=== PATIENT | female | born 1980 | race African-American/Black ===

== ENCOUNTER 2023-02-25 13:15 | Outpatient (OUT) | payer OTHER, SELFPAY ==
--- NOTE | 2023-02-25 13:23 | MM_ITS ---
Patient: HARDY MARTINEZ Exam Date: 02/25/2023 : 1980 Gender:F Ordering : DR Greyson Alfaro . Admission #: [id number] Family : Non-Staff Physician Order #: [id number] CLICK HERE TO VIEW EXAM RADIOLOGY REPORT PROCEDURE: MM TOMOSYNTHESIS SCREENING BI COMPARISON: MG MAMM SCREEN KRISTOFER W CAD, 07/24/2019. INDICATIONS: Screening Calculator Name NCI Breast Cancer Risk Assessment Tool 5 Year Breast Cancer Risk 0.90% Lifetime Breast Cancer Risk 9.30% Personal Breast Cancer No Personal Ovarian Cancer No Treatments None Family Cancers None LOCATION: [facility] BREAST COMPOSITION: Scattered areas fibroglandular density. FINDINGS: DIAGNOSTIC CATEGORY 2--BENIGN FINDING: RIGHT BREAST: No significant suspicious finding. Stable small benign appearing lymph node within upper-outer quadrant. Scattered benign-appearing calcifications are present. No significant change has occurred. LEFT BREAST: No significant suspicious finding. Scattered benign-appearing calcifications are present. No significant change has occurred. RECOMMENDATIONS: ROUTINE MAMMOGRAM AND CLINICAL EVALUATION IN 12 MONTHS. PLEASE NOTE: A NORMAL MAMMOGRAM DOES NOT EXCLUDE THE POSSIBILITY OF BREAST CANCER. A CLINICALLY SUSPICIOUS PALPABLE LUMP SHOULD BE BIOPSIED. Dictated by: Keshav Avalos M.D. on 03/02/2023 at 14:55 Approved by: Keshav Avalos M.D. on 03/02/2023 at 14:57
--- NOTE | 2023-02-25 13:34 | US_ITS ---
[address] [address] Patient Name: HARDY MARTINEZ MRN: [id number] date: 1980 Sex: F Assigned Patient Location: MAMMO Current Patient Location: M[facility]MO Accession/Order Number: [id number] Exam Date: 02/25/2023 14:05 Report Date: 02/25/2023 15:23 At the request of: LYNDSEY FREEMAN Procedure: US pelvis w/ transvaginal EXAMINATION: US pelvis w/ transvaginal HISTORY: Menorrhagia with regular cycle N92.0 COMPARISON: Ultrasound pelvis 06/10/2021 TECHNIQUE: Transabdominal and/or transvaginal sonographic examination was performed as indicated by examination type. FINDINGS: UTERUS: Heterogeneous myometrial mass within posterior fundus, 3.4 x 3.3 x 2.3 cm, suspected represent a leiomyoma. Small nabothian cysts within cervix and chronic dystrophic calcification. Uterus size: 11.0 x 6.3 x 6.0 cm ENDOMETRIUM: Normal homogeneous appearance. Endometrial thickness: 4 mm RIGHT OVARY: Normal size and appearance. Duplex Doppler demonstrates normal waveform and flow; resistive index 3.4. Ovary size: 2.0 x 2.1 x 1.3 cm LEFT OVARY: Contains a 3.0 cm benign-appearing cyst. Duplex Doppler demonstrates normal waveform and flow; resistive index 0.6. Ovary size: 4.1 x 3.4 x 2.7 cm CUL-DE-SAC: Unremarkable. No significant free fluid. BLADDER: Unremarkable. OTHER: None. IMPRESSION: 1. Slight interval increase in size of a fundal myometrial mass, suspected represent a leiomyoma. This does not appear to contact the endometrium. 2. Incidental nabothian cysts. 3. Benign-appearing left ovarian cyst of doubtful clinical significance. Electronically authenticated by: ADRIANNA SHUKLA Date: 02/25/2023 15:23
== END 2023-02-25 13:16 ==
LOC: MAMMO 13:16
PROVIDERS: Visit Provider Obstetrics & Gynecology
DX: Z12.31 Encounter for screening mammogram for malignant neoplasm of breast (principal); N92.0 Excessive and frequent menstruation with regular cycle; N83.202 Unspecified ovarian cyst, left side
CPT/HCPCS: 76830; 76856; 77063; 77067

== ENCOUNTER 2025-04-23 19:06 | Outpatient (REF) | payer OTHER, SELFPAY ==
[2025-04-26 15:08] LABS: Age Gdln ACOG Testing Note (.); IGP, Aptima HPV, rfx 16/18,45 Note (.)
== END 2025-04-23 19:07 | disposition home or self-care (01) ==
LOC: LAB 19:06
PROVIDERS: Visit Provider Obstetrics & Gynecology
DX: Z01.419 Encounter for gynecological examination (general) (routine) without abnormal findings (principal)
CPT/HCPCS: 87624; 88175

== ENCOUNTER 2025-07-16 11:06 | Outpatient (OUT) | payer OTHER, SELFPAY ==
--- OUTSIDE RECORDS SUMMARY | 2025-07-16 11:09 | XMS_ITS | Clinical Summary ---
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 Name Role Phone Unavailable Primary Care Provider Unavailabl e Allergies Active AllergyReactionsCriticalityNoted SfluLfugmvcwSlalhifgsoOtvqs10/22/2017 Povidone DklxhlUgdhhex13/30/2023Povidone-AszwxcLjwska28/02/2019 PT blistered from application Medications MedicationSigDispense QuantityRefillsLast FilledStart DateEnd DateStatus losartan (Cozaar) 25 MG tablet Losartan PotassiumActive Active Problems ProblemNoted DateDiagnosed DateAbnormal uterine bleeding (AUB)02/15/2023 Cvbxaeaobogh01/30/2023Menstrual llvithcw49/30/2023Menorrhagia with regular cycle 02/15/2023 Encounters DateTypeDepartmentCare CjefLbjaoiqjyxq23/13/2025 8:40 AM EDTConsult [facility] [address] [place] [address] [place] [address] Greyson Alfaro DO Pre-op evaluation; Uterine leiomyoma, unspecified location; Enlarged uterus; Pelvic pain in fscdmg6207/01/2025amboo flowsheet [facility] [address] [place] [address] [place] [address] Greyson Alfaro DO 05/21/2025 8:30 [place] [address] Greyson Alfaro DO Encounter to discuss test results; Enlarged uterus; Uterine leiomyoma, unspecified /02/2025amboo flowsheet [facility] [address] [place] [address] Greyson Alfaro DO 05/07/2025 1:00 PM EDTAncillary [place] [address] Abnormal uterine bleeding (AUB)05/07/2025[place] [address] Gris Price MA 04/23/2025 1:00 PM [place] [address] Greyson Alfaro DO Well woman exam with routine gynecological exam; Breast cancer screening by mammogram; Abnormal uterine bleeding (AUB)04/23/2025linisync Result Encounter [facility] Department Unsolicited Greyson Alfaro DO 04/23/2025[place] [id number] Elva Dickens LPN 5Bamboo [place] [address] Greyson Alfaro DO from Last 3 Months Social History Tobacco UseTypesPacks/DayYears UsedDateSmoking Tobacco: Never Assessed Tobacco Cessation:Counseling Given: Not Answered CommentsNoSex and Gender InformationValueDate RecordedSex Assigned at BirthNot on fileLegal KhiYfqbsv41/15/2023 11:48 PM EDTGender IdentityNot on file Sexual OrientationNot on file Last Filed Vital Signs Vital SignReadingTime TakenCommentsBlood Qazikgqz013/7207/01/2025 8:58 AM EDT Pulse--Temperature--Respiratory Rate--Oxygen Saturation--Inhaled Oxygen Concentration--Kacnmh65.9 kg (154 lb)07/01/2025 8:58 AM WIVYctufp099.5 cm (5' 2 )07/01/2025 8:58 AM EDTBody Mass Index28.171 8:58 AM EDT Plan of Treatment DateTypeDepartmentCare Team (Latest Contact Info)Deltwegguif60/10/2026 1:00 PM EDTProcedure Visit [facility] [address] [place] [id number] DominicGreyson benites, DO [address] [place], [place] [id number] Procedures Procedure NamePriorityDate/TimeAssociated DiagnosisCommentsUS PELVIC COMPLETE W/ IHIguffna23/19/2025 1:44 PM EDT Abnormal uterine bleeding (AUB) IGP,APTIMA HPV,AGE PKUXGxuwsgz26/05/2025 12:59 PM EDT PAP DWKGNQlbiujk83/05/2025 12:00 AM EDTfrom Last 3 Months Results * US Pelvis w/ TV (05/07/2025 1:44 PM EDT)Anatomical RegionLateralityModality PelvisUltrasoundSpecimen (Source)Anatomical Location / LateralityCollection Method / VolumeCollection TimeReceived Time05/09/2025 8:06 AM EDT Narrative 05/09/2025 8:06 AM EDT EXAM: US PELVIC COMPLETE W/ TV HISTORY: ??AUB, irregular heavy periods, months between periods. COMPARISON: ??None available. TECHNIQUE: Two-dimensional transabdominal grayscale ultrasound imaging of the pelvis was performed.Color flow Doppler imaging of the ovaries was also performed. Transvaginal was performed. FINDINGS: UTERUS 12.1 x 7.2 x 8.7 cm The uterus is anteverted in position and demonstrates a heterogeneous echotexture. ??There is a 5.6cm subserosal fibroid within the fundus. ??Multiple nabothian cysts are visualized within the cervix. ENDOMETRIUM 0.8 cm The endometrium demonstrates a normal, homogeneous echotexture. RIGHT OVARY 3.3 x 1.8 x 2.9 cm The right ovary demonstrates a normal echotexture. ??There is normal color Doppler flow. ??There sonido 2.4 cm follicle. LEFT OVARY 4.2 x 2.7 x 2.8 cm The left ovary demonstrates a normal echotexture. ??There is normal color Doppler flow. ??There is a 2.5 cm dominant follicle. No fluid is present within the cul-de-sac. IMPRESSION: 1. Enlarged and heterogeneous uterus with a fibroid. 2. Normal color Doppler flow within the bilateral ovaries. Interpreted by: Electronically signed by CK LOVE II, ?? , PHD at 09-May-2025 08:05:18 AM [facility] Procedure Note Ck Love MD - 05/09/2025 EXAM: US PELVIC COMPLETE W/ TV HISTORY: AUB, irregular heavy periods, months between periods. COMPARISON: None available. TECHNIQUE: Two-dimensional transabdominal grayscale ultrasound imaging ofthe pelvis was performed. Color flow Doppler imaging of the ovaries wasalso performed. Transvaginal was performed. FINDINGS: UTERUS 12.1 x 7.2 x 8.7 cm The uterus is anteverted in position and demonstrates a heterogeneous echotexture. There is a 5.6 cm subserosal fibroid within the fundus.Multiple nabothian cysts are visualized within the cervix. ENDOMETRIUM 0.8 cm The endometrium demonstrates a normal, homogeneous echotexture. RIGHT OVARY 3.3 x 1.8 x 2.9 cm The right ovary demonstrates a normal echotexture. There is normal colorDoppler flow. There is a 2.4 cm follicle. LEFT OVARY 4.2 x 2.7 x 2.8 cm The left ovary demonstrates a normal echotexture. There is normal colorDoppler flow. There is a 2.5 cm dominant follicle. No fluid is present within the cul-de-sac. IMPRESSION: 1. Enlarged and heterogeneous uterus with a fibroid. 2. Normal color Doppler flow within the bilateral ovaries. Interpreted by: Electronically signed by CK LOVE II, MD, PHD [id number] 08:05:18 AM [facility] Authorizing ProviderResult TypeResult StatusCorey Dominic [facility] US PROCEDURESFinal Result * IGP,APTIMA HPV,AGE GDLN (04/23/2025 12:59 PM EDT)ComponentValueRef RangeTest MethodAnalysis TimePerformed AtPathologist SignatureAGE GDLN ACOG TESTINGNote. TBHComment: ?? TESTS ? RESULT ??FLAG ??UNITS ?REF RANGE ??LAB ?? Clinician Provided Cytology Information ?? Source.............Cervix;Endocervix ?? No. of containers..01 ThinPrep Vial Age Algo ACOG Kathi... ??30-65 ? 01 ?FLAG LEGEND: ?L-Low Normal,H-High Normal,LL-Alert Low,HH-Alert High <-Panic Low,>-Panic High,A-Abnormal,AA-Critical Abnormal Performed at: 01 =G ?[facility] ?? [address] [place], [place] ??[address] ?? Leti Piper MD, IGP, APTIMA HPV, RFX 16/18,45Note.TBHComment: ?? TESTS ? RESULT ??FLAG ??UNITS ?REF RANGE ??LAB DIAGNOSIS: ?02 ?? NEGATIVE FOR INTRAEPITHELIAL LESION OR MALIGNANCY. Specimen adequacy: ?02 ?? Satisfactory for evaluation. ??Endocervical and/or squamous metaplastic ?? cells (endocervical component) are present. Performed by: ? 02 ?? Danylel Noel, Sand Screener (ASCP) . ? 02 Note: ? Note ?02 ?? The Pap smear is a screening test designed to aid in the ?? detection of premalignant and malignant conditions of the ?? uterine cervix. ??It is not a diagnostic procedure and ?? should not be used as the sole means of detecting cervical ?? cancer. ??Both false-positive and false-negative reports do ?? occur. Test Methodology: ? Note ?02 ?? This liquid based ThinPrep(R) pap test was screened with ?? the use of an image guided system. HPV Genotype Reflex ?? Note ?02 ?? Criteria not met, HPV Genotype not performed. ?FLAG LEGEND: ?L-Low Normal,H-High Normal,LL-Alert Low,HH-Alert High <-Panic Low,>-Panic High,A-Abnormal,AA-Critical Abnormal Performed at: 02 WB ?[facility] ?? [address] [place], [place] ??[address] ?? Leti Piper MD, HPV APTIMANegativeNegativeTBHComment: This nucleic acid amplification test detects fourteen high- risk HPV types (16,18,31,33,35,39,45,51,52,56,58,59,66,68) without differentiation. Performed at: ??=G - [facility] ??[id number] Inside Sales Engineer: Leti Piper MD, Phone: ??[phone] Performed at: ??WB - [facility] ??[id number] Inside Sales Engineer: Leti Piper MD, Phone: ??[phone] Specimen (Source)Anatomical Location / LateralityCollection Method / Volume Collection TimeReceived Time04/23/2025 12:59 PM EDT04/23/2025 9:00 PM EDT Narrative [facility] - 04/26/2025 3:08 PM EDT BRUSH-SPATULA CERVIX ENDOCERVIX Authorizing ProviderResult TypeResult StatusCorey Dominic [facility] BLOOD ORDERABLES Final ResultPerforming OrganizationAddressCity/State/[facility] CodePhone Number [facility] * Pap Smear (04/23/2025 12:00 AM EDT)Specimen (Source)Anatomical Location / LateralityCollection Method / VolumeCollection TimeReceived TimeSwabCervical swab / Unknown Narrative Authorizing ProviderResult TypeResult StatusCorey Dominic [facility] CYTOLOGY ORDERABLESFinal ResultPerforming OrganizationAddressCity/State/ZIP CodePhone Number EXTERNAL LAB from Last 3 Months Insurance
--- NOTE | 2025-07-16 11:10 | ECG_ITS ---
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
[2025-07-16 12:49] LABS: Anion Gap 7.8; Blood Urea Nitrogen 13.0 mg/dL (7.0-18.0); Calcium 9.0 mg/dL (8.5-10.1); Carbon Dioxide 34.4 mmol/L (21.0-32.0); Chloride 100 mmol/L (98-107); Estimated GFR (African America >60 (>=60 mL/min/1.73m^2); Estimated GFR (Non-African Ame >60 (>=60 mL/min/1.73m^2); Glucose 89 mg/dL (74-106); Potassium 3.2 mmol/L (3.5-5.1); Sodium 139 mmol/L (136-145)
== END 2025-07-16 11:07 | disposition home or self-care (01) ==
LOC: PST 11:07
PROVIDERS: Visit Provider Obstetrics & Gynecology
DX: Z01.812 Encounter for preprocedural laboratory examination (principal); Z01.810 Encounter for preprocedural cardiovascular examination; N85.2 Hypertrophy of uterus; D25.9 Leiomyoma of uterus, unspecified
CPT/HCPCS: 36415; 80048; 93005

== ENCOUNTER 2025-07-26 07:55 | Day surgery (SDC) | payer OTHER, SELFPAY ==
[2025-07-16 11:37] VITALS: BP 161/97; PULSE 59; TEMP 36.3; O2SAT 99; BMI 28.5
--- OUTSIDE RECORDS SUMMARY | 2025-07-17 22:59 | XMS_ITS | Continuity of Care Document ---
Author Organization [facility] Address [address] [place] [address] [place] [address] Support Name Relationship Address Phone Iman Fields Personal Relationship Unknown Unava ilable Encounter FT_AMBFIN [id number] Date(s): 07/17/25 - 07/17/25 [facility] [address], [address], [place] [address]- Discharge Disposition: Home (Routine DC) Attending Physician: Bharat HAAS MD Encounter Type: Clinic Allergies, Adverse Reactions, Alerts SubstanceCriticalitySeverityReactionReaction SeverityStatusiodineRashActive Treatment Plan Future Appointments Appointment Date:07/31/2025 03:20:00 PM Scheduled Provider:Bharat HAAS MD Location:[facility] Appointment Type:[facility] 15 Medications hydrochlorothiazide 12.5 mg Tab 90 EA, 0 Refill(s), TAKE 1 TABLET BY MOUTH ONCE DAILY, Refills(s) 0 Start Date: 07/10/25 Status: Ordered Medication Dispense Status: Completed Total Allowed Fills: 1 Fills Dispensed: 0 losartan 25 mg Tab 25 mg = 1 tab(s), Oral, Daily, Refills(s) 0 Start Date: 05/27/25 Status: Ordered Medication Dispense Status: Completed Total Allowed Fills: 1 Fills Dispensed: 0 Metoprolol tartrate 50 mg Tab 90 EA, 0 Refill(s), TAKE 1 TABLET BY MOUTH IN THE MORNING, Refills(s) 0 Start Date: 07/10/25 Status: Ordered Medication Dispense Status: Completed Total Allowed Fills: 1 Fills Dispensed: 0 Vyvanse 40 mg oral capsule 30 EA, 0 Refill(s), TAKE 1 CAPSULE BY MOUTH IN THE MORNING MAX DAILY AMOUNT 40MG, Refills(s) 0 Start Date: 07/10/25 Status: Ordered Medication Dispense Status: Completed Total Allowed Fills: 1 Fills Dispensed: 0 Problem List ConditionConfirmationCourseEffective DatesStatusHealth StatusInformantADHD ConfirmedActiveHypertensionConfirmedActiveOverweightConfirmedActive Procedures ProcedureDateRelated DiagnosisBody SiteStatusCesarean sectionCompletedCesarean sectionCompletedDilation and curettageCompletedTubal ligationCompleted Social History Social History TypeResponseBirth SexFemaleSex RepresentationFemale (finding) Patient Care team information Care Team Related Persons Name: Iman Fields Insurance Providers Guarantor name: [employer] Plan Information #: 1 Payer: [facility] Payer Identifier: [id number] Member Number: [id number] Group Number: [id number] Subscriber Identifier: [id number] Relationship to Subscriber: self Coverage Type: MEDICAID Coverage Verification Date: 25 Telecom: [id number] Address: [address]
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
[2025-07-26] VITALS (11 sets, daily range): BP systolic 82–131; BP diastolic 50–78; PULSE 56–69; TEMP 36.2–36.4; O2SAT 91–100; BMI 30.6
--- OUTSIDE RECORDS SUMMARY | 2025-07-26 07:59 | XMS_ITS | Clinical Summary ---
Author Organization Reocar tem Address [id number] [address] [place] [address] Care Team Providers Care Wholesale Account Executive Name Role Phone Carmenza Murphy MD Primary Care Provider [phone] Allergies Active AllergyReactionsCriticalityNoted DateCommentsPovidone-IodineMedium 03/20/2019 PT blistered from application LogxoixyzhMdbzg92/22/2017 Medications MedicationSigDispense QuantityRefillsLast FilledStart DateEnd DateStatus hydroCHLOROthiazide (HYDRODIURIL) 12.5 mg tablet Indications:HTN (hypertension), benign,Essential hypertensionTake 1 tablet (12.5 mg total) by mouth daily. 90 tablet 5Active metoprolol tartrate (LOPRESSOR) 50 mg tablet Indications:HTN (hypertension), benign,Essential hypertensionTake 1 tablet (50 mg total) by mouth in the morning. 90 tablet 5Active lisdexamfetamine (VYVANSE) 40 mg capsule Indications:Attention deficit hyperactivity disorder (ADHD), unspecified ADHD type,Attention deficit disorder (ADD) without hyperactivityTake 1 capsule (40 mg total) by mouth in the morning. Max Daily Amount: 40 mg. 90 capsule 5Active lisdexamfetamine (VYVANSE) 40 mg capsule Indications:Attention deficit hyperactivity disorder (ADHD), unspecified ADHD type,Attention deficit disorder (ADD) without hyperactivityTake 1 capsule (40 mg total) by mouth in the morning. Max Daily Amount: 40 mg. 90 capsule Discontinued(Reorder) predniSONE (DELTASONE) 10 mg tablet Indications:Sore throat (viral)Take 2 tablets by mouth daily for 4 days then 1 tablet daily 10 tablet Discontinued fluticasone propionate (FLONASE) 50 mcg/actuation nasal spray Indications:Sore throat (viral)Administer 1 spray into each nostril in the morning. 15.8 mL Discontinued benzocaine-menthoL (CEPACOL SORE THROAT, MALIA-MEN,) 15-2.6 mg lozenge Indications:Sore throat (viral)Dissolve 1 lozenge in the mouth every 2 (two) hours as needed (sore throat). 18 lozenge Discontinued Active Problems ProblemNoted DateDiagnosed DateMenorrhagia with regular cycle02/15/2023ttention deficit hyperactivity disorder (ADHD)04/08/2017Attention deficit disorder (ADD) without oevifpbsgtkrj22/22/2017HTN (hypertension), mhbqch7103/10/2017 Encounters DateTypeDepartmentCare TokiJtuokstryio74/04/2025 2:20 PM ESTOffice Visit [facility] [address] [place] [phone] Bharat Castanon DO HTN (hypertension), benign (Primary Dx)07/23/20252519Axljer72/21/2025 2:40 PM EDT Office Visit [facility] [address] [place] [address] [place] [address] 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, 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 Sore throat (viral) (Primary Dx)07/09/20258004Dbcepl63/12/2025Refill [facility] [address] [place] [address] [place] [address] Carmenza Murphy MD Attention deficit hyperactivity disorder (ADHD), unspecified ADHD type; Attention deficit disorder (ADD) without hdenghddizngq89/02/2025Telephone [facility] [address] [place] [address] [place] [address] Remedios Joe CMA Colon Cancer Nnfdyshlj83/07/2025[facility] [address] [place] [phone] Carmenza Murphy MD HTN (hypertension), benign; Essential hypertension; Attention deficit hyperactivity disorder (ADHD), unspecified ADHD type; Attention deficit disorder (ADD) without xfdsspqgaweac50/07/2025Results Follow-Up [facility] [address] [place] [phone] Carmenza Murphy MD Drug Screen, Urine05/23/2025 4:00 PM EDTOffice Visit [facility] [address] [place] [phone] Carmenza Murphy MD HTN (hypertension), benign; Essential hypertension; Attention deficit hyperactivity disorder (ADHD), unspecified ADHD type; Attention deficit disorder (ADD) without ccyqtwubvsouj13/04/2025Travelfrom Last 3 Months Immunizations ImmunizationAdministration DatesNext EitVfrg3810/26/2017 Family History Medical HistoryRelationNameCommentsDiabetesMotherElzaHypertensionMotherElza HypertensionSisterArrieRelationNameStatusCommentsMotherElzaAliveSisterArrieAlive Social History Tobacco UseTypesPacks/DayYears UsedDateSmoking Tobacco: NeverSmokeless Tobacco: Never Tobacco Cessation:Counseling Given: Not Answered Alcohol UseStandard Drinks/WeekCommentsNot Currently0 (1 standard drink = 0.6 oz pure alcohol)Social Connection and Isolation PanelAnswerDate RecordedIn a typical week, how many times do you talk on the phone with family, friends, or neighbors?More than three times a week03/16/2022How often do you get together with friends or relatives?Twice a week03/16/2022How often do you attend buddhist or shinto services?More than 4 times per year2Do you belong to any clubs or organizations such as buddhist groups, unions, fraternal or athletic fredi ups, or school groups?No03/16/2022How often do you attend meetings of the clubs or organizations you belong to?Never03/16/2022re you , , , , never , or living with a partner?Never 03/16/2022verall Financial Resource Strain (CARDIA)AnswerDate RecordedHow hard is it for you to pay for the very basics like food, housing, medical care, and heating?Not hard at all02/20/2025PHQ-2AnswerDate RecordedTotal Hzxzs71809/22/2024 [facility]ational [facility] - Occupational Stress Questionnaire [...] from medical appointments or from getting medications?Patient xkungbgj79/04/2025In the past 12 months, has lack of transportation kept you from meetings, work, or from getting things needed for daily living?Patient gzntfbqy72/04/2025UDIT-CAnswerDate RecordedQ1: How often do you have a [...] a household?Patient Declined 02/20/2025hildcareAnswerDate RecordedDo problems getting child neurologist make it difficult for you to work [...] InformationValueDate RecordedSex Assigned at BirthNot on fileLegal IzwKlnomu45/06/2015 11:32 AM EDTGender IdentityNot on fileSexual OrientationNot on file Last Filed Vital Signs Vital SignReadingTime TakenCommentsBlood Amrpxifa224/8407/23/2025 3:03 PM EST Jmleh535707/23/2025 2:23 PM YJOUnfzglckmjl24.7 ??C (98 ??F)07/23/2025 2:23 PM EST Respiratory Oxaq3927 8:56 AM EDTOxygen Equvsdhmas12%07/23/2025 2:23 PM ESTInhaled Oxygen Concentration--Ozakro60.3 kg (161 lb 9.6 oz)07/23/2025 2:23 PM LWUCcfxyr540.5 cm (5' 2 )07/23/2025 2:23 PM ESTBody Mass Index29.56109/22/2024 2:23 PM EST Plan of Treatment DateTypeDepartmentCare Team (Latest Contact Info)Gsireooqdoo22/09/2025 3:30 PM ESTOffice Visit [facility] [address] [place] [address] [place] [address] Carmenza Murphy MD [address] [place] [address], [place] [address] Health MaintenanceDue DateLast DoneCommentsAdult BMI Follow Up Plan01/20/1996 Ozonvmwvx00/03/2018Adult BMI Xujhwstyi87Depression Screening Tobacco Khcqephut20/04/54832509/22/2024DTaP,Tdap and Td Vaccines (7 - Td or Tdap), 06/07/1984, 09/27/1983, Additional history existsPap SmearInfluenza Vaccine Discontinued Medical Devices Not on file Procedures Procedure NamePriorityDate/TimeAssociated DiagnosisCommentsDRUG SCREEN, URINE Jnwyvdw3805/23/2025 4:49 PM EDT Attention deficit hyperactivity disorder (ADHD), unspecified ADHD type Attention deficit disorder (ADD) without hyperactivity from Last 3 Months Results * (ABNORMAL) Drug Screen, Urine (05/23/2025 4:49 PM EDT)ComponentValueRef Range Test MethodAnalysis TimePerformed AtPathologist SignatureAMPHETAMINE/METHAMP HdsmjqwjIpmfgpik27/04/2025 7:09 PM [facility] Comment:AMPH/METH screening cut off = 1000 ng/mLCOCAINE METABOLITENegative Axehordp95/04/2025 7:09 PM [facility]: Cocaine screening cut off value = 300 ng/rHWHUMZOAKagnyrgfDxcvomag75/04/2025 7:09 PM [facility]:Ecstasy screening cut off value = 500 ng/cNRVOKARLLAFdnclueuCcphyndv21/04/2025 7:09 PM [facility]:Methadone screening cut off value = 300 ng/mL.LJKYYUIZcododrnIyktzkbl07/04/2025 7:09 PM [facility]: Opiates screening cut off value = 300 ng/mL This test is used for the detection of codeine, hydrocodone (>1000 ng/mL), morphine and hydromorphone (>900 ng/mL) in urine. CUVIDBTOJLhbfltgoJprlrxcj48/04/2025 7:09 PM [facility]: Oxycodone screening cut off value = 300 ng/mL This test is used for the detection of oxycodone and oxymorphone in urine. TJRTFLKUDNMTFFfllkwqaKpzdyucr85/04/2025 7:09 PM [facility]:Phencyclidine screening cut off value = 25 ng/mLCANNABINOIDS Positive(A)Vjwggpst61/04/2025 7:09 PM [facility] Comment:Cannabinoids/THC screening cut off value = 50 ng/mLUrine Barbiturates QmpogtotIddpdhmr52/04/2025 7:09 PM [facility] Comment:Barbiturates screening cut off value = 200 ng/mLBENZODIAZEPINESNegative Pbmoelet42/04/2025 7:09 PM [facility] Benzodiazepines screening cut off value = 200 ng/mLSpecimen (Source)Anatomical Location / LateralityCollection Method / VolumeCollection TimeReceived TimeUrine 05/23/2025 4:49 PM EDT05/23/2025 4:49 PM EDT Narrative [facility] - 05/23/2025 7:09 PM EDT Confirmation available upon request. Authorizing ProviderResult TypeResult StatusMuargelia DONALD ORDERABLES Final ResultPerforming OrganizationAddressCity/State/ZIP CodePhone Number [facility] [address] [place] [address], [place] [phone] from Last 3 Months Care Teams Team MemberRelationshipSpecialtyStart DateEnd Date Carmenza Murphy MD [address] [place] [address] PCP - GeneralInternal Medicine10/07/23
--- OUTSIDE RECORDS SUMMARY | 2025-07-26 07:59 | XMS_ITS | Encounter Summary ---
Author Organization [facility] Address [address] [place] [address] Care Team Providers Care Laborer Bituminous Paving Name Role Phone Unavailable Primary Care Provider Unavailabl e Encounter Details DateTypeDepartmentCare Team (Latest Contact Info)Izyiouupmvl52/28/2025linisync Result Encounter [facility] Unsolicited Lyndsey Alfaro, [address] [place] [address] Social History Tobacco UseTypesPacks/DayYears UsedDateSmoking Tobacco: Never Assessed CommentsNoSex and Gender InformationValueDate RecordedSex Assigned at BirthNot on fileLegal GmfWxdnnt99/15/2023 11:48 PM EDTGender IdentityNot on fileSexual OrientationNot on filedocumented as of this encounter Plan of Treatment DateTypeD[facility] medical centerCare Team (Latest Contact Info)Oqjphhbixcb24/10/2026 1:00 PM EDTProcedure Visit [facility] [place] [facility] [address] [address] Lyndsey Alfaro DO [address] [place] [address] documented as of this encounter Procedures Procedure NamePriorityDate/TimeAssociated DiagnosisCommentsECG 12-LEAD07/16/2025 9:40 AM EDT documented in this encounter Results * ECG 12-LEAD (07/16/2025 9:40 AM EDT)Anatomical RegionLateralityModalityOther Specimen (Source)Anatomical Location / LateralityCollection Method / Volume Collection TimeReceived Time07/16/2025 9:40 AM EDT Narrative 07/16/2025 1:15 PM EDT [facility] ?[address] ? [place] [address] ? Electrocardiograph Report ? Signed ? Patient: LIU,HARDY M ?MR#: [id number] ?? : 1980 ?Acct:[id number] ?? Age/Sex: 45 / F ?ADM Date: 10/28/25 ?? Loc: PST ? Attending Dr: Lyndsey Alfaro D.O. ? Ordering Physician: Lyndsey Alfaro D.O. ?? Date of Service: 07/16/25 ?? Procedure(s): ECG 12 lead ?? Accession Number(s): [id number] ? cc: ?[facility] ? Test Date: ?2025-07-16 ?? Pat Name: ? HARDY LIU ?Department: ? Room: ? - ?? Gender: ? Female ? Jewelsmith: ? : ?1980 ? Requested By: LYNDSEY ALFARO ?? Order Number: [id number] ?Reading MD: ?? EMILE CASTLE ? Measurements ?? Intervals ?[place] ? Rate: ? 54 ? P: ?46 ?? SD: ? 137 ?QRS: ?33 ?? QRSD: ? 80 ? T: ?24 ?? QT: ? 377 ? QTc: ?360 ? Interpretive Statements ?? SINUS BRADYCARDIA ?? SEPTAL MYOCARDIAL INFARCTION [40+ ms Q WAVE IN V1/V2], OF INDETERMINATE AGE ?? Compared to ECG 07/16/2025 09:33:30 ?? T-wave abnormality no longer present ?? Possible ischemia no longer present ?? Myocardial infarct finding still present ?? Electronically Signed On 07-16-2025 13:14:31 EDT by EMILE CASTLE ? Dictated By: ?Emile Castle M.D. ? Signed By: ?07/16/25 1315 ? DD/ 0940 ? TD/TT: ? Learning Center Instructor: Procedure Note Radiology, Radiologist, - 07/16/2025 [place] [address] Electrocardiograph Report Signed Patient: HARDY LIU MMR#: [id number] : 1980Acct:[id number] Age/Sex: 45 / FADM Date: 07/16/25 Loc: PST Attending Dr: Lyndsey Alfaro D.O. Ordering Physician: Lyndsey Alfaro D.O. 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 Signed By:07/16/25 1315 DD/ 0940 TD/TT: Learning Center Instructor: Authorizing ProviderResult TypeResult StatusCorey Dominic DOCLINISYNC IMAGINGFinal Result documented in this encounter Visit Diagnoses Not on filedocumented in this encounter
--- OUTSIDE RECORDS SUMMARY | 2025-07-26 07:59 | XMS_ITS | Encounter Summary ---
Author Organization [facility] Address [address] [facility] [place] [address] Care Team Providers Care Field Underwriter Name Role Phone Unavailable Primary Care Provider Unavailabl e Encounter Details DateTypeDepartmentCare Team (Latest Contact Info)Cjijogzprsk68/28/2025linisync Result Encounter [facility] External [facility] Unsolicited Greyson Alfaro, [address] [place] [address] Social History Tobacco UseTypesPacks/DayYears UsedDateSmoking Tobacco: Never Assessed CommentsNoSex and Gender InformationValueDate RecordedSex Assigned at BirthNot on fileLegal ZeyVrfvlr44/15/2023 11:48 PM EDTGender IdentityNot on fileSexual OrientationNot on filedocumented as of this encounter Plan of Treatment DateTypeDewashington regional medical centerCare Team (Latest Contact Info)Ayxunsnqugq70/10/2026 1:00 PM EDTProcedure Visit [facility] [place] [facility] [address] [place] [address] Greyson Alfaro DO [address] [place] [address] documented as of this encounter Procedures Procedure NamePriorityDate/TimeAssociated DiagnosisCommentsALL BASIC METABOLIC OOESRWitcqkw17/28/2025 11:49 AM EDT documented in this encounter Results * (ABNORMAL) ALL BASIC METABOLIC PANEL (07/16/2025 11:49 AM EDT)ComponentValue Ref RangeTest MethodAnalysis TimePerformed AtPathologist VzpytsddkNUHYSH651479 - 145 mmol/LTBHPOTASSIUM3.2(L)3.5 - 5.1 mmol/LBJPTZMCFJJD72425 - 107 mmol/LTBH CARBON PENYZVC55.4(H)21.0 - 32.0 mmol/LTBHANION GAP7.1MQEFGULFCS8544 - 106 mg/dLTBHBLOOD UREA FCXXQJAM33.07.0 - 18.0 mg/dLTBHCREATININE0.870.55 - 1.02 mg/dLTBHTBH EGFR-AF MOZAMBICAN>60>=60 mL/min/1.73m 2TBHTBH EGFR-NON AF MOZAMBICAN >60>=60 mL/min/1.73m 2TBHBUN CREATININE RATIO14.8YUQPWASYBR4.08.5 - 10.1 mg/dL TBHSpecimen (Source)Anatomical Location / LateralityCollection Method / Volume Collection TimeReceived Time07/16/2025 11:49 AM EDT1 11:52 AM EDT Narrative [facility] - 07/16/2025 12:56 PM EDT Authorizing ProviderResult TypeResult StatusCorey Dominic DOCLINISYNCFinal Result Performing OrganizationAddressCity/State/ZIP CodePhone Number [facility] TB documented in this encounter Visit Diagnoses Not on filedocumented in this encounter
--- OUTSIDE RECORDS SUMMARY | 2025-07-26 07:59 | XMS_ITS | Encounter Summary ---
Author Organization [employer] s tem Address [id number] [address] [place] [address] Care Team Providers Care Principal Programmer Name Role Phone Carmenza Murphy MD Primary Care Provider [phone] Encounter Details DateTypeDepartmentCare Team (Latest Contact Info)Yibmregsdzm48/04/2025Travel Social History Tobacco UseTypesPacks/DayYears UsedDateSmoking Tobacco: NeverSmokeless Tobacco: NeverAlcohol UseStandard Drinks/WeekCommentsNot Currently0 (1 standard drink = 0.6 oz pure alcohol)Social Connection and Isolation PanelAnswerDate RecordedIn a typical week, how many times do you talk on the phone with family, friends, or neighbors?More than three times a week03/16/2022How often do you get together with friends or relatives?Twice a week03/16/2022How often do you attend yazidism or rastafarian services?More than 4 times per year2Do you belong to any clubs or organizations such as yazidism groups, unions, fraternal or athletic fredi ups, or school groups?No03/16/2022How often do you attend meetings of the clubs or organizations you belong to?Never03/16/2022re you , , , , never , or living with a partner?Never 2Overall Financial Resource Strain (CARDIA)AnswerDate RecordedHow hard is it for you to pay for the very basics like food, housing, medical care, and heating?Not hard at all02/20/2025PHQ-2AnswerDate RecordedTotal Rgrja26509/22/2024 [employer] [place] [facility] [employer] - Occupational Stress Questionnaire [...] from medical appointments or from getting medications?Patient /04/2025In the past 12 months, has lack of transportation kept you from meetings, work, or from getting things needed for daily living?Patient kuliolib86/04/2025UDIT-CAnswerDate RecordedQ1: How often do you have a [...] household?Patient Declined 02/20/2025hildcareAnswerDate RecordedDo problems getting child and youth program assistant make it difficult for you to work [...] InformationValueDate RecordedSex Assigned at BirthNot on fileLegal YdaOdnvdb78/06/2015 11:32 AM EDTGender IdentityNot on fileSexual OrientationNot on filedocumented as of this encounter Functional Status * AUDIT-C ScoreAnswerDate of NsdxrscvxzAjodcg565/04/2025 2:23 PM Joselin Vasquez CNA * QuestionAnswerDate [...] Vasquez CNA documented as of this encounter Plan of Treatment DateTypeDepartmentCare Team (Latest Contact Info)Vqsxybqcmlb29/09/2025 3:30 PM ESTOffice Visit [facility] [address] [place] [phone] Carmenza Murphy MD [address] [place] [address] documented as of this encounter Visit Diagnoses Not on filedocumented in this encounter Additional Health Concerns AssessmentNoted TimePHQ-9 Depression Total Score: 2:23 PM ESTA Body Mass Index follow-up plan has been documented for the lwtohzz1011/03/2020 11:39 AM ESTdocumented as of this encounter Care Teams Team MemberRelationshipSpecialtyStart DateEnd Date Carmenza Murphy MD [address] [place] [address] PCP - GeneralInternal Medicine1/19/24documented as of this encounter
--- OUTSIDE RECORDS SUMMARY | 2025-07-26 07:59 | XMS_ITS | Clinical Summary ---
Author Organization [facility] Address [address] [facility] [place] [address] Care Team Providers Care Still Operator Whiskey Name Role Phone Unavailable Primary Care Provider Unavailabl e Allergies Active AllergyReactionsCriticalityNoted ZiioZtftjpusVhhpyqbdziQjlvk48/22/2017 Povidone QdzowtTcyrzju75/30/2023Povidone-RxjwgyVthcbr68/02/2019 PT blistered from application Medications MedicationSigDispense QuantityRefillsLast FilledStart DateEnd DateStatus losartan (Cozaar) 25 MG tablet Losartan PotassiumActive Active Problems ProblemNoted DateDiagnosed DateAbnormal uterine bleeding (AUB)02/15/2023 Wgkzieupklev09/30/2023Menstrual zoywducf08/30/2023Menorrhagia with regular cycle 02/15/2023 Encounters DateTypeDepartmentCare GpfsVrcnmzchfzu34/30/2025Telephone [facility] [address] [place] [address] Gris Price MA 5Clinisync Result Encounter [facility] External Department Unsolicited Lyndsey Alfaro DO 5Clinisync Result Encounter [facility]S External Department Unsolicited Lyndsey Alfaro DO 07/01/2025 8:40 AM EDTConsult [facility] [address] [place] [address] Lyndsey Alfaro DO Pre-op evaluation; Uterine leiomyoma, unspecified location; Enlarged uterus; Pelvic pain in miuoax5207/01/2025amboo flowsheet [facility] [address] [place] [address] Lyndsey Alfaro DO 05/21/2025 8:30 AM EDTOffice Visit [facility] [address] [place] [address] [place] [address] Lyndsey Alfaro DO Encounter to discuss test results; Enlarged uterus; Uterine leiomyoma, unspecified pmjyzfli79/02/2025amboo flowsheet [facility] [address] [facility] [address] Lyndsey Alfaro DO 05/07/2025 1:00 PM EDTAncillary Procedure [facility] [address] [place] [address] [place] [address] Abnormal uterine bleeding (AUB)05/07/2025Orders Only [facility] [address] [place] [address] [place] [address] Gris Price MA from Last 3 Months Social History Tobacco UseTypesPacks/DayYears UsedDateSmoking Tobacco: Never Assessed Tobacco Cessation:Counseling Given: Not Answered CommentsNoSex and Gender InformationValueDate RecordedSex Assigned at BirthNot on fileLegal ZmoEpiesu36/15/2023 11:48 PM EDTGender IdentityNot on file Sexual OrientationNot on file Last Filed Vital Signs Vital SignReadingTime TakenCommentsBlood Xacjcyxp130/7207/01/2025 8:58 AM EDT Pulse--Temperature--Respiratory Rate--Oxygen Saturation--Inhaled Oxygen Concentration--Zzttxj89.9 kg (154 lb)07/01/2025 8:58 AM EBPJeexuq598.5 cm (5' 2 )07/01/2025 8:58 AM EDTBody Mass Index28.171 8:58 AM EDT Plan of Treatment DateTypeDepartmentCare Team (Latest Contact Info)Uzrkofwwhyo68/10/2026 1:00 PM EDTProcedure Visit [facility] [address] [place] [address] Lyndsey Alfaro, [address] [place] [address] Procedures Procedure NamePriorityDate/TimeAssociated DiagnosisCommentsALL BASIC METABOLIC JYLJOCefhhdv31/28/2025 11:49 AM EDT ECG 12-LEAD07/16/2025 9:40 AM EDT US PELVIC COMPLETE W/ BUXjiauwl24/19/2025 1:44 PM EDT Abnormal uterine bleeding (AUB) from Last 3 Months Results * (ABNORMAL) ALL BASIC METABOLIC PANEL (07/16/2025 11:49 AM EDT)ComponentValue Ref RangeTest MethodAnalysis TimePerformed AtPathologist GtbpzzrtnTHWGJA607624 - 145 mmol/LTBHPOTASSIUM3.2(L)3.5 - 5.1 mmol/IFUYKZBOQZWX03912 - 107 mmol/LTBH CARBON RQLLMSO12.4(H)21.0 - 32.0 mmol/LTBHANION GAP7.1XQUPUQYFOL5471 - 106 mg/dLTBHBLOOD UREA DTYLHBLN06.07.0 - 18.0 mg/dLTBHCREATININE0.870.55 - 1.02 mg/dLTBHTBH EGFR-AF ALBANIAN>60>=60 mL/min/1.73m 2TBHTBH EGFR-NON AF ALBANIAN >60>=60 mL/min/1.73m 2TBHBUN CREATININE RATIO14.0ZJHKMQYLEH7.08.5 - 10.1 mg/dL TBHSpecimen (Source)Anatomical Location / LateralityCollection Method / Volume Collection TimeReceived Time07/16/2025 11:49 AM EDT1 11:52 AM EDT Narrative [facility] - 07/16/2025 12:56 PM EDT Authorizing ProviderResult TypeResult StatusCorey Dominic DOCLINISYNCFinal Result Performing OrganizationAddressCity/State/ZIP CodePhone Number [facility] * ECG 12-LEAD (07/16/2025 9:40 AM EDT)Anatomical RegionLateralityModalityOther Specimen (Source)Anatomical Location / LateralityCollection Method / Volume Collection TimeReceived Time07/16/2025 9:40 AM EDT Narrative 07/16/2025 1:15 PM EDT [facility] ?[address] ? [place] [address] ? Electrocardiograph Report ? Signed ? Patient: LIU,HARDY M ?MR#: [id number] ?? : 1980 ?Acct:[id number] ?? Age/Sex: 45 / F ?ADM Date: 07/16/25 ?? Loc: PST ? Attending Dr: Lyndsey Alfaro D.O. ? Ordering Physician: Lyndsey Alfaro D.O. ?? Date of Service: 07/16/25 ?? Procedure(s): ECG 12 lead ?? Accession Number(s): [id number] ? cc: ?[facility] ? Test Date: ?2025-07-16 ?? Pat Name: ? HARDY LIU ?Department: ? Room: ? - ?? Gender: ? Female ? 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 : ?1980 ? Requested By: LYNDSEY ALFARO ?? Order Number: [id number] ?Reading MD: ?? EMILE CASTLE ? Measurements ?? Intervals ?Gilman ? Rate: ? 54 ? P: ?46 ?? AK: ? 137 ?QRS: ?33 ?? QRSD: ? [...] 1315 ? DD/ 0940 ? TD/TT: ? Spray Ii Painter: Procedure Note Radiology, Radiologist, MD - 07/16/2025 [place] [address] Electrocardiograph Report Signed Patient: HARDY LIU MMR#: [id number] : 1980Acct:[id number] Age/Sex: 45 / FADM Date: 07/16/25 Loc: PST Attending Dr: Lyndsey Alfaro D.O. Ordering Physician: Lyndsey Alfaro D.O. 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 Signed By:07/16/25 1315 DD/ 0940 TD/TT: Spray Ii Painter: Authorizing ProviderResult TypeResult StatusCorey Dominic DOCLINISYNC IMAGINGFinal Result * US Pelvis w/ TV (05/07/2025 1:44 [...] ?? , PHD at 09-May-2025 08:05:18 AM [facility] Procedure Note Ck Love MD - [...] signed by CK LOVE II, MD, PHD [id number] 08:05:18 AM [facility] Authorizing ProviderResult TypeResult StatusCorey Dominic DOIMG US PROCEDURESFinal Result from Last 3 Months Insurance * Guarantor: Hardy Liu TypeRelation to PatientDate of BirthPhone Billing AddressPersonal/KpyiqjWruv1980 [facility] [place] [address]
--- OUTSIDE RECORDS SUMMARY | 2025-07-26 07:59 | XMS_ITS | Encounter Summary ---
Author Organization [facility] Address [address] [facility] [place] [address] Care Team Providers Care Batch Roller Operator Name Role Phone Unavailable Primary Care Provider Unavailabl e Encounter Details DateTypeDepartmentCare Team (Latest Contact Info)Aysvefyhime08/30/2025Telephone [facility] [address] [place] [address] Gris Price MA [address] [place] [address] Social History Tobacco UseTypesPacks/DayYears UsedDateSmoking Tobacco: Never Assessed CommentsNoSex and Gender InformationValueDate RecordedSex Assigned at BirthNot on fileLegal WjaTnzmgp63/15/2023 11:48 PM EDTGender IdentityNot on fileSexual OrientationNot on filedocumented as of this encounter Miscellaneous Notes * Telephone Encounter - Gris Price MA - 07/18/2025 8:59 AM EDT Sent abnormal EKG report to patients PCP for surgical clearance. Pt is aware. PCP is Carmenza Hale from [facility]. documented in this encounter Plan of Treatment DateTypeDepartmentCare Team (Latest Contact Info)Aoiatibffmh57/10/2026 1:00 PM EDTProcedure Visit [facility] [address] [place] [address] Greyson Alfaro DO [address] [place] [address] documented as of this encounter Visit Diagnoses Not on filedocumented in this encounter
[2025-07-26 08:06] LABS: Hematocrit 38.3 % (36.0-48.0); Hemoglobin 13.2 g/dL (12.0-16.0); Immature Granulocytes Abs Auto 0.02 10^3/uL (0.00-0.03); Immature Granulocytes Pct Auto 0.3 % (0.0-0.5); Lymphocytes Absolute Auto 2.1 10^3/uL (1.2-3.8); Mean Corpuscular HGB Conc 34.5 g/dL (29.9-35.2); Mean Corpuscular Hemoglobin 30.2 pg (26.7-34.0); Mean Corpuscular Volume 87.6 fL (81.0-99.0); Platelet Count 267 10^3/uL (150-450); Red Blood Count 4.37 10^6/uL (4.20-5.40); White Blood Count 6.3 10^3/uL (4.0-11.0)
--- NOTE | 2025-07-26 10:28 | P.ON_ITS ---
Brief Operative Note Date of procedure: 07/26/25 Pre-op diagnosis general: pelvic pain, dysmenorhea, dyspareunia, menorrhagia Post-op diagnosis: same as pre-op Procedure: NAME OF PROCEDURE: [ D&c hysteroscopy with myosure, diagnostic laparoscopy with lysis of omental adhesions] PROCEDURE: The patient was taken back to the Operating Room where she was prepped and draped in normal sterile fashion after being placed under general anesthesia without difficulty. She was also placed in the dorsal lithotomy position. A weighted speculum was placed in the patient?s vagina. The anterior lip of the cervix was identified and grasped with a single tooth tenaculum. The patient?s uterus was then sounded roughly to [? 8] cm. The patient was then gently dilated using Hegar dilators. The hysteroscope was passed through the patient?s cervix into the uterus. Both ostia were identified. fluffy appearing endometrium. No gross evidence of malignancy, no gross evidence of polyps or fibroids. The myosure apparatus was placed through the scope, The myosure was engaged and endometrial curretting were removed along with endometrial polyp, The hysteroscope was then removed from the uterus. The endometrial curettings were sent out to pathology. The single tooth tenaculum was then removed from the patient's anterior lip of the cervix where excellent hemostasis was noted. All instruments were removed from the patient?s vagina. . A sponge stick was placed into the patient's vagina. Attention was turned to the patient's abdomen, where a small umbilical incision was made. The fascia was tented using Davis clamps and the fascia was entered sharply. Confirmation of intraabdominal placement of the 10 mm port was confirmed under direct visualization using a laparoscope. The patient's abdomen was then insufflated using CO2 gas with approximately 4 liters. A second port was placed left laterally, this was done under direct visualization with a 5 mm port. Survey of the patient's abdomen demonstrated normal liver and gallbladder. Survey of the patient's pelvic anatomy demonstrated normal appearing rt and lt ovary and tubes as well as enlarged fibroid appearing uterus. No endometrial implants could be noted, no evidence of any pelvic disease was seen, normal appearing pelvic cavity. All instruments were removed from the patient's abdomen. The patient's abdomen was deinsufflated of CO2 gas. The patient tolerated the procedure well. Sponge stick was removed from the patient's vagina. The patient's infraumbilical fascia was closed using #0 Vicryl on a GI needle. The patient's skin was closed laterally and infraumbilically using 4-0 Vicryl. The patient tolerated the procedure well. Sponge, lap and needle counts were correct x 2. The patient was taken to Recovery Room in stable condition. please note ligasure was used for lysis of omental adhesions Anesthesia: DAVID Surgeon: Greyson Alfaro Whey Department Operator: Mary Anne Acosta Estimated blood loss (mL): 5 Pathology: other (endometrial currettings) Condition: stable Disposition: PACU Urinary Catheter Management Urinary Catheter Management Urethral: Cath placed during this visit: no
[2025-07-26] MEDS: HYDROCODONE/ACET 5-325 MG TABLET 1 TAB PO (11:42)
== END 2025-07-26 12:15 | disposition home or self-care (01) ==
LOC: SURGOUT 07:56
PROVIDERS: Visit Provider Obstetrics & Gynecology
PROC: (CPT 840; principal; 2025-07-26 09:05)
DX: N94.6 Dysmenorrhea, unspecified (principal); N94.10 Unspecified dyspareunia; N92.0 Excessive and frequent menstruation with regular cycle; N84.0 Polyp of corpus uteri; D25.9 Leiomyoma of uterus, unspecified; I10 Essential (primary) hypertension; K66.0 Peritoneal adhesions (postprocedural) (postinfection); Z98.51 Tubal ligation status
CPT/HCPCS: 49320; 58558; 36415; 84702; 85025; 88305; J1100; J1171; J1200; J1885; J2405; J2704; J3010